=== PATIENT | female | born 2000 | race Caucasian/White ===

== ENCOUNTER 2022-03-21 00:14 | Day surgery (SDC) | payer OTHER, SELFPAY ==
--- NOTE | 2022-03-20 12:51 | PC.NURSE ---
Report to the Outpatient Waiting Room, entrance under the green pavilion located off [facility], at time __0730 on date _03/21/22 . OR Time: . - You and your visitor will be asked a series of questions to screen for COVID 19 for your protection. - Only one visitor is allowed at this time. - The patient visitor is requested to leave or wait in car when not with patient. - A mask is required within the hospital. Patients may have clear liquids (water, carbonated beverages, clear teas, apple juice) until 3 hours prior to surgery with a maximum of 20 ounces. - No food from midnight until time of surgery - Infants may have breast milk until 4 hours before surgery, infant formula 6 hours prior to surgery. - Children will be allowed to drink immediately following surgery. If applicable, please bring a bottle or sippy cup to assist with drinking. Juice, water, soda, and popsicles are readily available. For infants on formula, please bring formula the day of surgery. Pacifiers are allowed. Take the following medications with a SIP of water the morning of surgery: ____PAIN PILL IF NEEDED, HYDROXYZINE IF NEEDED, VENLAFAXINE Medications to discontinue per physician ____NONE Date to take last dose Please no make-up, nail hungarian, hairspray, perfume, deodorant, or body powder the day of surgery. No jewelry (including any body piercings) or valuables the day of surgery, leave them at home. Please take a shower or bath the night before, or the morning of, surgery with an antibacterial soap. Wear comfortable, loose fitting clothing. Children are encouraged to wear pajamas. - Jewelry must be removed prior to entering the operating room. Rings and piercings that are not removed may be cut off. - The hospital will not accept responsibility for valuables. - Please leave all valuables, including medications, at home the day of surgery. If you are going home after surgery, a licensed delivery truck driver heavy must drive you home. - NO public transportation without another adult. - We recommend that an adult stay with you for 24 hours following discharge. - We also recommend that you do not drive, make important decision, drink alcoholic beverages, or take any drugs that were not prescribed by your health care provider for at least 24 hours after your discharge time. For Pediatric surgeries, we recommend two adults accompany the child home (only one inside the building at this time). Follow any additional instructions given to you from your surgeon. If you or anyone in your household have experienced Covid symptoms in the past week, please notify your surgeon or the nurse liaison at the phone number below for possible testing. Telephone instructions given to __PATIENT and asked if any additional questions and then verbalized understanding. Patient advised to call surgeon office or pre surgery nurse liaison [phone] if any additional questions.
[2022-03-20 12:58] VITALS: BMI 25.0
--- NOTE | 2022-03-20 13:15 | P.PNAN_ITS ---
Anes - Initial Pre Proc Eval Procedure: Operation Date: 03/21/22 09:30 Proposed Procedures p Laparoscopic Right Ovarian Cystectomy - Hailee Mendieta MD Date/Time: 03/20/22 13:15 Surgeon: Hailee Mendieta MD Pre Op Diagnosis: Right Ovarian Cyst Patient Data Age: 21 Gender: F Height: 1.65 m Weight: 68.1 kg Allergies Allergy/AdvReac Type Severity Reaction Status Date / Time latex Allergy Hives Verified 03/21/22 08:21 azithromycin [From Zithromax] AdvReac Rash AND Verified 03/21/22 08:21 HIVES Home Medications Medication Instructions Recorded Confirmed Type hydrocodone 5 mg-acetaminophen 325 1 tablet PO PRN PRN Pain 03/20/22 03/21/22 History mg tablet hydroxyzine HCl 10 mg tablet 1 tablet PO PRN PRN Anxiety 03/20/22 03/21/22 History venlafaxine 37.5 mg 1 cap PO DAILY 03/20/22 03/21/22 History capsule,extended release 24 hr Patient hx anesthesia problems: none Family hx anesthesia problems: none Results Review: All pre-operative results and documents have been reviewed as part of the pre- operative evaluation. FOR[facility]LY [facility] Social History Social History Tobacco type: e-cigarettes/vaping Substance use: current Substance use type: marijuana Last use: 03/17/22 Living arrangements: with friend(s) Spiritual care concerns: No Anes - Eval Final PreProcedure Day of Procedure 03/20/22 13:15 Patient weight: normal Heart: regular rate and rhythm Lungs: clear to auscultation and normal air movement Airway: Mallampati scale class II Neurological: alert and oriented Last oral intake: >/= 8 hours ASA classification: II Emergent: no Anesthetic plan: proceed Anesthesia type and monitoring: general ETT Results Review: All pre-operative results and documents have been reviewed as part of the pre-operative evaluation. Informed Consent: The patient's anesthetic plan and its attendant risks and benefits were discussed with the patient/family/POA. Questions were solicited and answers provided to the satisfaction of the patient/family/POA.
[2022-03-21] VITALS (9 sets, daily range): BP systolic 100–122; BP diastolic 55–83; PULSE 53–82; RESP 10–18; TEMP 36.3–36.5; O2SAT 95–100
[2022-03-21] MEDS: LACTATED RINGERS 1,000 ML 30 ML IV CONT ×2 (08:00→11:23)
[2022-03-21] MEDS: ACETAMINOPHEN 500 MG TABLET 1000 MG PO (08:03)
[2022-03-21] MEDS: KETOROLAC 15 MG/ML VIAL (*BKC) IV PUSH (08:03)
--- NOTE | 2022-03-21 09:17 | WPDHPUPDATE1 ---
History and Physical Update Update Date/Time: 03/21/22 09:17 History and Physical has been reviewed, including an updated exam of the patient. There are NO changes in the patient's condition. Risks, benefits, and alternatives have been discussed and questions answered. Patient agrees to proceed with procedure.
--- NOTE | 2022-03-21 10:33 | W.PM.PROC2 ---
Procedure Note - Detailed Date of Procedure 03/21/22 Pre-op Diagnosis Right Ovarian Cyst Post-op Diagnosis Same Procedure Performed Laparoscopic right ovarian cystectomy Surgeon Hailee Mendieta MD Anesthesia General Indications Pelvic pain Description of Procedure The patient was taken to the operating room. She was prepped and draped in the dorsal lithotomy position after induction general anesthesia. A 5 mm incision was made with a scalpel on the abdominal skin in the left upper quadrant of the abdomen. A 5 mm trocar was inserted into the intra-abdominal cavity under direct visualization the scope. In the same fashion a 5 mm left lower quadrant trocar was inserted and a 5 mm infraumbilical trocar was inserted. Right ovarian cystectomy was performed. It was performed a scissors and blunt dissection. Sample of the cyst was removed. Cautery was used to make an hemostatic. He would derm was applied 2 to make it hemostatic. The pelvis was irrigated. The pneumoperitoneum was reduced. The trocars were removed. Skin was closed with subcuticular 4 micro. The patient's incisions were covered with Dermabond. She was taken recovery room in stable condition. Sponge lap and needle counts were correct x2. Complications No immediate complications Condition Stable Disposition Same day
[2022-03-21] MEDS: ONDANSETRON INJ 4 MG/2 ML VIAL IV PUSH (10:47)
[2022-03-21] MEDS: fentaNYL CITRATE INJ (*CRX) 100 MCG/2 ML VIAL 25 MCG IV PUSH ×5 (10:48→11:18)
[2022-03-21] MEDS: HALOPERIDOL LACTATE 5 MG/ML VIAL 1 MG IV PUSH (11:15)
[2022-03-21] MEDS: SCOPOLAMINE 1.5 MG PATCH TRANSDERM (11:18)
== END 2022-03-21 12:43 | disposition home or self-care (01) ==
PROVIDERS: Visit Provider Obstetrics & Gynecology
PROC: (CPT 49320; principal; 2022-03-21 09:30)
DX: N83.201 Unspecified ovarian cyst, right side (principal); N73.6 Female pelvic peritoneal adhesions (postinfective); F17.290 Nicotine dependence, other tobacco product, uncomplicated; F12.90 Cannabis use, unspecified, uncomplicated
CPT/HCPCS: 58662; 88305; A9270; J1100; J1630; J1885; J2250; J2405; J2704; J2710; J3010; J7120

== ENCOUNTER 2023-04-04 16:41 | Emergency (ER) | payer OTHER, SELFPAY ==
[2023-04-04 17:07] VITALS: BP 111/79; PULSE 96; RESP 16; TEMP 37; O2SAT 100
--- NOTE | 2023-04-04 17:26 | ED.BACK ---
HPI - Back Pain/Injury General Chief Complaint: Back Pain/Injury Stated Complaint: back pain Time Seen by Provider: 04/04/23 17:17 Source: patient and RN notes reviewed Mode of arrival: ambulatory Limitations: no limitations History of Present Illness HPI Narrative: Patient presents today complaining of mid back pain since last night. 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 Denies radiation of pain. Denies numbness or tingling in her extremities or genitalia. Denies loss of bowel or bladder control. She currently rates her pain 03/17 and has been taking ibuprofen and Tylenol without relief. Related Data Allergies Allergy/AdvReac Type Severity Reaction Status Date / Time azithromycin [From Zithromax] AdvReac Mild Rash AND Verified 04/04/23 17:00 HIVES latex AdvReac Mild Hives Verified 04/04/23 17:00 Review of Systems Review of Systems: CONSTITUTIONAL: Denies body aches, fever, chills, or sweats. EYES: Denies visual changes, redness, or discharge. ENT: Denies rhinorrhea, congestion, sore throat, or otalgia. CARDIOVASCULAR: Denies chest pain, palpitations, or edema. RESPIRATORY: Denies cough or dyspnea. GASTROINTESTINAL: Denies abdominal pain, nausea, vomiting, or diarrhea. GENITOURINARY: Denies dysuria or hematuria. SKIN: Denies rash, itching, or wounds. MUSCULOSKELETAL: Denies joint pain, or myalgia.+ back pain NEUROLOGIC: Denies headache, numbness, tingling, or weakness. PSYCH: Denies depression or anxiety. PMFSH Social History Social History Tobacco type: e-cigarettes/vaping Substance use: current Substance use type: marijuana Last use: 03/17/22 Living arrangements: with friend(s) Spiritual care concerns: No Comments At time of signature, I have reviewed and agree with nursing past medical, surgical, social and family history unless otherwise noted. Please see nursing chart for further information. There is no relevant family history pertinent to the presenting complaint Exam Narrative: GENERAL: Well-appearing, well-nourished, and in no acute distress. HEAD: Normocephalic, atraumatic. EYES: EOMI. No redness or drainage. Conjunctivae normal. ENT: Mucous membranes pink and moist. NECK: Normal AROM. CHEST: No respiratory distress. MUSCULOSKELETAL: Bilateral lower thoracic back pain. No step-off or deformity noted. No lumbar tenderness. Distal sensation intact. Saddle sensation intact. Capillary refill normal. Pedal pulses normal. Dorsiflexion and plantar flexion equal and strong against resistance. Patellar reflexes 2+ bilaterally. EXTREMITIES: Normal range of motion. No edema. SKIN: Warm, dry, no rash. Capillary refill normal. Normal skin turgor. NEURO: No focal deficits. Alert and oriented x3. Gait steady. PSYCH: Normal affect. No signs of depression or anxiety. Course Course Level of Care: Express Care Visit Vital Signs Vital signs: Vital Signs Temperature 98.6 F 04/04/23 17:07 Pulse Rate 96 04/04/23 17:07 Respiratory Rate 16 04/04/23 17:07 Blood Pressure 111/79 04/04/23 17:07 Pulse Oximetry 100 04/04/23 17:07 Oxygen Delivery Room Air 04/04/23 17:07 Temperature 98.6 F 04/04/23 17:07 Pulse Rate 96 04/04/23 17:07 Respiratory Rate 16 04/04/23 17:07 Blood Pressure 111/79 04/04/23 17:07 Pulse Oximetry 100 04/04/23 17:07 Oxygen Delivery Room Air 04/04/23 17:07 Reviewed MDM - Back Pain/Injury MDM Narrative Medical decision making narrative: Exam consistent with a thoracic back strain. Will treat with Flexeril and prednisone. Instructed patient to continue ibuprofen as well. Anticipatory guidance given Differential Diagnosis Differential diagnosis: Likely sciatica, strain of lumbar region and other (Strain of thoracic back) Critical Care Time Critica
== END 2023-04-04 17:34 | disposition home or self-care (01) ==
PROVIDERS: Emergency Provider Nurse Practitioner
DX: S29.012A Strain of muscle and tendon of back wall of thorax, initial encounter (principal); X50.0XXA Overexertion from strenuous movement or load, initial encounter; Y99.0 Civilian activity done for income or pay; F17.290 Nicotine dependence, other tobacco product, uncomplicated
CPT/HCPCS: 99213; G0463

== ENCOUNTER 2023-05-24 10:34 | Emergency (ER) | payer OTHER, SELFPAY ==
--- NOTE | ~2023-05-24 | CT_ITS ---
EXAMINATION: CT abdomen pelvis w con DATE: 05/24/2023 12:50 INDICATION: Lower abdominal pain TECHNIQUE: Computed tomography (CT) of the abdomen and pelvis was performed with 100 mL Omnipaque-350 intravenous contrast. Automated exposure control and iterative reconstruction technique were employe d. The dose-length product was 322.92 mGy-cm. COMPARISON: None FINDINGS: Lung bases are clear. Heart size is normal. No pericardial or pleural effusion. Liver, gallbladder, s pleen, pancreas, bilateral adrenal glands and right kidney are normal. Subcentimeter low-attenuation cyst at the mid left kidney. Bowels including the appendix are normal. Bladder, anteverted uterus and right adnexa are unremarkable. 3.1 cm left adnexal cyst with a couple thin internal septations with smooth margins and without evident solid soft tissue component. No free intraperitoneal gas or fluid. No pathologically enlarged abdominal or pelvic lymphadenopathy. Bones are unremarkable. IMPRESSION: 1. 3.1 cm multilocular cystic left ovarian lesion with smooth thin internal septations versus indeter minate closely opposed simple cysts. Recommend follow-up pelvic ultrasound in 6-12 weeks. No other ev ident acute intra-abdominal/pelvic process. Reviewed, dictated and finalized at location A. IMPRESSION: 1. 3.1 cm multilocular cystic left ovarian lesion with smooth thin internal sep tations versus indeterminate closely opposed simple cysts. Recommend follow-up pelvic ultrasound in 6-12 weeks. No other evident acute intra-abdominal/pelvic process.
[2023-05-24 10:49] VITALS: BP 124/88; RESP 16; TEMP 36.4; O2SAT 100
[2023-05-24 11:35] VITALS: BP 122/83; PULSE 92; RESP 16; O2SAT 97
[2023-05-24 11:40] LABS: Basophils Absolute Auto 0.1 K/mm3 (0.0-0.1); Basophils Percent Auto 0.7 % (0.2-1.2); Eosinophils Absolute Auto 0.3 K/mm3 (0-0.3); Eosinophils Percent Auto 2.2 % (0-4.4); Hematocrit 43.9 % (37.0-47.0); Hemoglobin 14.5 g/dL (12.0-15.0); Immature Granulocyte Absolute 0.04 K/mm3 (0.00-0.031); Immature Granulocyte Percent A 0.3 % (0-0.5); Lymphocytes Absolute Auto 2.66 K/mm3 (0.9-3.2); Lymphocytes Percent Auto 22.5 % (18.3-44.2); Mean Corpuscular Hemoglobin 29.3 pg (26-34); Mean Corpuscular Volume 88.7 fl (80-100); Mean Platelet Volume 12.3 fl (7.4-10.4); Monocytes Absolute Auto 0.7 K/mm3 (0.1-0.6); Monocytes Percent Auto 5.7 % (2.6-8.5); Neutrophils Absolute Auto 8.1 K/mm3 (1.3-6.7); Neutrophils Percent Auto 68.6 % (45.5-73.1); Platelet Count Result 294 k/mm3 (150-375); Red Blood Count 4.95 M/mm3 (4.2-5.4); Red Cell Distribution Width 12.7 % (11.5-14.5); White Blood Count 11.8 K/mm3 (4.5-10.0)
[2023-05-24 11:50] LABS: Alanine Aminotransferase 17 U/L (6-35); Albumin Level 5.4 g/dL (3.5-5.1); Alkaline Phosphatase 47 U/L (38-126); Anion Gap 14 mmol/L (8-16); Aspartate Amino Transferase 23 U/L (14-36); Blood Urea Nitrogen 12 mg/dL (7-17); Calcium 9.9 mg/dL (8.4-10.2); Carbon Dioxide 26 mmol/L (22-30); Chloride 100 mmol/L (98-107); Estimated CRCL calculation 99 ml/min; Estimated Glomerular Filt Rate > 60; Glucose 90 mg/dL (65-110); Lipase 54 U/L (23-300); Potassium 3.6 mmol/L (3.4-5.0); Sodium 140 mmol/L (137-145)
[2023-05-24 11:51] LABS: Appearance Urine Clear (Clear); Bacteria Urine None Seen /hpf; Bilirubin Urine Negative (Negative); Blood Urine 1+ (Negative); Color Urine Yellow (Yellow); Glucose Urine UA Negative (Negative); Ketones Urine Negative (Negative); Leukocyte Esterase Ur Negative LEU/UL (Negative); Nitrate Urine Negative (Negative); Non Pathogenic Casts 0-2; Protein Urine Negative (Negative); RBC Urine 0-2 /hpf (0-2); Squamous Epithelial Cell Urine Occasional /hpf (Few); Urobilinogen Urine 0.2 mg/dL (<2.0); WBC Urine 0-5 /hpf
[2023-05-24 11:52] LABS: Add Urine Microscopic? YES
[2023-05-24] MEDS: MORPHINE SULFATE (*CRX) 4 MG/ML INJ IV PUSH (12:53)
[2023-05-24 12:54] VITALS: BP 120/78; PULSE 85; RESP 18; O2SAT 100
[2023-05-24] MEDS: SODIUM CHLORIDE 0.9% IV 1,000 ML 999 ML IV CONT (12:54)
[2023-05-24] MEDS: ONDANSETRON INJ 4 MG/2 ML VIAL IV PUSH (12:54)
[2023-05-24 13:05] VITALS: BP 116/76; PULSE 84; RESP 13; O2SAT 100
--- NOTE | 2023-05-24 13:19 | PC.NURSE ---
while giving morphine as prescribed pt stated they felt anxious and only wanted half the prescribed dose. all vitals wnl and pt reports not feeling anxious anymore. will waste leftover morphine dose with another nurse.
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
[2023-05-24 14:01] VITALS: BP 122/82; PULSE 96; RESP 18; O2SAT 100
== END 2023-05-24 14:08 | disposition home or self-care (01) ==
PROVIDERS: Emergency Provider General Practice
DX: N83.201 Unspecified ovarian cyst, right side (principal); F17.290 Nicotine dependence, other tobacco product, uncomplicated
CPT/HCPCS: 36415; 74177; 80053; 81001; 81025; 83690; 85025; 96361; 96374; 96375; 99284; J2270; J2405; J7030; Q9967

== ENCOUNTER 2023-11-25 08:21 | Emergency (ER) | payer OTHER, SELFPAY ==
--- NOTE | ~2023-11-25 | XR_ITS ---
EXAMINATION: XR lumbar spine 2-3V DATE: 11/25/2023 09:05 INDICATION: Medial back pain post fall down stairs TECHNIQUE: Anteroposterior and lateral views of the lumbar spine, and cone-down lateral view of the l umbosacral junction were obtained. COMPARISON: None. FINDINGS: Alignment is normal. Vertebral body and disc heights are normal. No fracture. Bilateral sacroiliac sundeep ints are normal. IMPRESSION: 1. Negative lumbar spine radiographs. Reviewed, dictated and finalized at location A. BLACK
[2023-11-25 08:36] VITALS: BP 125/72; PULSE 71; RESP 16; TEMP 37.4; O2SAT 100
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
== END 2023-11-25 09:35 | disposition home or self-care (01) ==
PROVIDERS: Emergency Provider Nurse Practitioner
DX: M54.50 Low back pain, unspecified (principal); F17.290 Nicotine dependence, other tobacco product, uncomplicated; Z79.899 Other long term (current) drug therapy
CPT/HCPCS: 72100; 99213; G0463

== ENCOUNTER 2024-07-25 09:05 | Emergency (ER) | payer OTHER, SELFPAY ==
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
[2024-07-25 09:12] VITALS: BP 106/75; PULSE 86; RESP 18; TEMP 36.4; O2SAT 100
[2024-07-25 09:48] LABS: BEDSIDEPREGUCG Negative (Negative)
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
[2024-07-25] MEDS: LIDOCAINE 5% PATCH 1 PATCH TRANSDERM (11:00)
[2024-07-25] MEDS: KETOROLAC (*BKC) 60 MG/2 ML VIAL IM (11:00)
[2024-07-25 11:23] VITALS: BP 121/93; PULSE 70; RESP 14; TEMP 36.4; O2SAT 100
== END 2024-07-25 11:28 | disposition home or self-care (01) ==
PROVIDERS: Emergency Provider Physician Assistant
DX: S39.012A Strain of muscle, fascia and tendon of lower back, initial encounter (principal); S29.012A Strain of muscle and tendon of back wall of thorax, initial encounter; F17.290 Nicotine dependence, other tobacco product, uncomplicated; V49.40XA Driver injured in collision with unspecified motor vehicles in traffic accident, initial encounter
CPT/HCPCS: 72072; 72100; 81025; 96372; 99283; A9270; J1885